=== PATIENT | female | born 1965 | race African-American/Black ===

== ENCOUNTER 2023-06-16 19:34 | Inpatient (IN) | payer BC ==
[~2023-06-16] VITALS: Ht 175.3 cm; Wt 122.0 kg
[~2023-06-16 19:34] MED LIST: TRAM-748 PO
[2023-06-16 19:56] VITALS: BP 148/113; PULSE 86; RESP 20; TEMP 97.2; O2SAT 98
[2023-06-16 21:00] LABS: APPEARANCE,URINE CLEAR (CLEAR); BILIRUBIN,URINE NEGATIVE (NEGATIVE); BLOOD, URINE TRACE-I (NEGATIVE); COLOR,URINE YELLOW (YELLOW); LEUKOCYTE ESTERASE ,URINE NEGATIVE (NEGATIVE); NITRITE, URINE NEGATIVE (NEGATIVE); PROTEIN,URINE 1+ (NEGATIVE); UGLUCOSE NEGATIVE (NEGATIVE)
[2023-06-16 21:16] LABS: BACTERIA,URINE FEW /HPF (None Seen); SQUAMOUS EPITHELIAL CELL,UR 0-3 (FEW) /LPF (0-3 (FEW)); WBC,URINE 0-5 /HPF (0-5)
[2023-06-16 21:21] LABS: BASOPHILS # (AUTO) 0.1 K/uL (0.00-0.22); EOSINOPHILS # (AUTO) 0.2 K/uL (0-0.4); EOSINOPHILS % (AUTO) 2.3 % (0.0-4.0); HEMATOCRIT 41.2 % (36-48); HEMOGLOBIN 13.3 g/dL (12.0-16.0); LYMPHOCYTES # (AUTO) 3.2 K/uL (2.5-16.5); LYMPHOCYTES % (AUTO) 38.3 % (20.5-51.1); MEAN CORPUSCULAR HEMOGLOBIN 29 pg (27-31); MEAN CORPUSCULAR HGB CONC 32 g/dL (33-37); MEAN CORPUSCULAR VOLUME 89.1 fL (80-94); MONOCYTES # (AUTO) 0.6 K/uL (0.8-1.0); MONOCYTES % (AUTO) 6.7 % (1.7-9.3); NEUTROPHILS # (AUTO) 4.4 K/uL (1.8-7.7); NEUTROPHILS % (AUTO) 51.7 % (42.2-75.2); PLATELET COUNT (AUTO) 265 K/uL (140-450); RED BLOOD CELL COUNT(AUTO) 4.62 MIL/uL (4.20-5.40); RED CELL DISTRIBUTION WIDTH 13.8 % (11.6-13.7); WHITE BLOOD COUNT (AUTO) 8.4 K/uL (4.8-10.8)
[2023-06-16 21:29] LABS: CALCIUM 8.7 mg/dL (8.5-10.1); CARBON DIOXIDE 30.5 mmol/L (21-32); POTASSIUM 3.5 mmol/L (3.5-5.1)
[2023-06-16 21:36] LABS: ALBUMIN 3.6 g/dL (3.4-5.0); BILIRUBIN,DIRECT 0.1 mg/dL (0.0-0.3); TOTAL BILIRUBIN 0.3 mg/dL (0.0-1.0); TOTAL PROTEIN, SERUM 7.4 g/dL (6.4-8.2)
[2023-06-16] MEDS ORDERED: MORPHINE SULFATE 4 MG/ML SYR IVP ONE (22:10)
[2023-06-16] MEDS ORDERED: ONDANSETRON 4 MG/2 ML VIAL IVP ONE (22:10)
[2023-06-16] MEDS ORDERED: NACL 0.9% 1,000 ML IV ONE (22:10)
[2023-06-17] MEDS ORDERED: MORPHINE SULFATE 4 MG/ML SYR IVP ONE (00:10)
[2023-06-17] MEDS ORDERED: KETOROLAC 30 MG/ML VIAL IVP ONE (00:10)
[2023-06-17] MEDS ORDERED: KETOROLAC 30 MG/ML VIAL IVP PRN (01:05)
[2023-06-17] MEDS ORDERED: ONDANSETRON 4 MG/2 ML VIAL IVP PRN (01:05)
[2023-06-17] MEDS ORDERED: MORPHINE SULFATE 2 MG/ML SYR IVP PRN (01:05)
[2023-06-17] MEDS ORDERED: CLONIDINE HYDROCHLORIDE 0.1 MG TAB PO PRN (01:05)
[2023-06-17] MEDS ORDERED: LORazepam 1 MG TAB PO PRN (01:10)
[2023-06-17 04:04] VITALS: PULSE 84; RESP 19; O2SAT 99
[2023-06-17 04:18] VITALS: BP 132/70; PULSE 84; RESP 19; TEMP 96.7; O2SAT 99
[2023-06-17 08:00] VITALS: BP 128/70; PULSE 78; PULSE 81; RESP 18; TEMP 97.1; O2SAT 98
[2023-06-17] MEDS ORDERED: PANTOPRAZOLE 40 MG INJ VIAL IVP SCH (09:00)
[2023-06-17 12:00] VITALS: BP 128/70; PULSE 78; PULSE 81; RESP 18; TEMP 97.1; O2SAT 98
== END 2023-06-17 15:55 | disposition left against medical advice (07) | DRG 440 ==
LOC: MED 19:34 → MMU 06-17 01:04
PROVIDERS: ADMIT Internal Medicine; ATTEND Internal Medicine
DX: K85.90 Acute pancreatitis without necrosis or infection, unspecified (principal); M54.9 Dorsalgia, unspecified; G89.29 Other chronic pain; Z98.891 History of uterine scar from previous surgery; Z79.899 Other long term (current) drug therapy
CPT/HCPCS: 36415; 80048; 80076; 81001; 83690; 85025; 87081; 93005; 96361; 96374; 96375; 96376; 99285; C9113; J1885; J2270; J2405

== ENCOUNTER 2023-06-23 16:47 | Emergency (ER) | payer BC ==
[~2023-06-23] VITALS: Ht 175.3 cm; Wt 119.7 kg
[2023-06-23 17:06] VITALS: BP 150/87; PULSE 66; RESP 16; TEMP 97.8; O2SAT 97
[2023-06-23 19:34] LABS: BASOPHILS # (AUTO) 0.1 K/uL (0.00-0.22); EOSINOPHILS # (AUTO) 0.2 K/uL (0-0.4); EOSINOPHILS % (AUTO) 2.3 % (0.0-4.0); HEMOGLOBIN 14.3 g/dL (12.0-16.0); LYMPHOCYTES # (AUTO) 3.9 K/uL (2.5-16.5); LYMPHOCYTES % (AUTO) 37.8 % (20.5-51.1); MEAN CORPUSCULAR HEMOGLOBIN 30 pg (27-31); MEAN CORPUSCULAR HGB CONC 33 g/dL (33-37); MEAN CORPUSCULAR VOLUME 88.6 fL (80-94); MONOCYTES # (AUTO) 0.6 K/uL (0.8-1.0); MONOCYTES % (AUTO) 5.6 % (1.7-9.3); NEUTROPHILS # (AUTO) 5.5 K/uL (1.8-7.7); NEUTROPHILS % (AUTO) 53.3 % (42.2-75.2); PLATELET COUNT (AUTO) 282 K/uL (140-450); RED BLOOD CELL COUNT(AUTO) 4.85 MIL/uL (4.20-5.40); RED CELL DISTRIBUTION WIDTH 13.6 % (11.6-13.7); WHITE BLOOD COUNT (AUTO) 10.3 K/uL (4.8-10.8)
[2023-06-23 19:58] LABS: ANION GAP 12.3 (8-16); CALCIUM 9.5 mg/dL (8.5-10.1); CARBON DIOXIDE 30.2 mmol/L (21-32); CREATININE 0.9 mg/dL (0.6-1.3); POTASSIUM 3.5 mmol/L (3.5-5.1)
[2023-06-23 20:06] LABS: ALANINE AMINOTRANSFERASE 22 U/L (12-78); ALBUMIN 3.8 g/dL (3.4-5.0); ALKALINE PHOSPHATASE 138 U/L (50-136); ASPARTATE AMINOTRANSFERASE 14 U/L (15-37); BILIRUBIN,DIRECT 0.1 mg/dL (0.0-0.3); LIPASE 91 U/L (16-77); TOTAL BILIRUBIN 0.4 mg/dL (0.0-1.0); TOTAL PROTEIN, SERUM 7.9 g/dL (6.4-8.2)
[2023-06-23] MEDS ORDERED: ALUMINUM HYD/MAG/SIMETHICONE 30 ML UDC PO ONE (21:00)
[2023-06-23] MEDS ORDERED: FAMOTIDINE 20 MG TAB PO ONE (21:00)
[2023-06-23] MEDS ORDERED: ONDANSETRON 4 MG ODT PO ONE (21:00)
[2023-06-23 21:26] LABS: APPEARANCE,URINE CLEAR (CLEAR); BILIRUBIN,URINE NEGATIVE (NEGATIVE); BLOOD, URINE 1+ (NEGATIVE); COLOR,URINE YELLOW (YELLOW); LEUKOCYTE ESTERASE ,URINE NEGATIVE (NEGATIVE); NITRITE, URINE NEGATIVE (NEGATIVE); PROTEIN,URINE TRACE (NEGATIVE); UGLUCOSE NEGATIVE (NEGATIVE); UROBILINOGEN,URINE 0.2 EU/dL (0.2 - 1)
[2023-06-23 21:46] LABS: SQUAMOUS EPITHELIAL CELL,UR 80-100 /LPF (0-3 (FEW)); WBC,URINE 0-5 /HPF (0-5)
[2023-06-23 21:47] LABS: BACTERIA,URINE 2+ /HPF (None Seen); CALCIUM OXALATE CRYSTALS,UR 0-10 /HPF (None Seen); COARSE GRANULAR CASTS,URINE 0-10 /LPF (None Seen); MUCUS,URINE 1+ /LPF (None Seen); TRICHOMONAS,URINE None Seen /HPF (None Seen); YEAST,URINE None Seen /HPF (None Seen)
[2023-06-23] MEDS ORDERED: ONDA-188 SL (21:57)
[2023-06-23] MEDS ORDERED: OMEP40EC23 PO (21:57)
[2023-06-23] MEDS ORDERED: MAG30ORA10 PO (21:57)
[2023-06-23] MEDS ORDERED: SUCR1TAB35 PO (21:57)
[2023-06-23 22:24] VITALS: BP 170/80; PULSE 88; RESP 16; TEMP 97.8; O2SAT 97
== END 2023-06-23 22:23 | disposition home or self-care (01) ==
LOC: MED 16:47
DX: R10.13 Epigastric pain (principal); R11.2 Nausea with vomiting, unspecified; Z79.899 Other long term (current) drug therapy
CPT/HCPCS: 36415; 71045; 80048; 80076; 81001; 81025; 83690; 83880; 84484; 85025; 87086; 93005; 99285; Q0162